=== PATIENT | male | born 1940 | race Caucasian/White ===

== ENCOUNTER 2021-08-29 08:38 | Inpatient (IN) ==
[2021-08-29 10:42] LABS: Albumin 3.3 G/DL (3.4-5.0); Bilirubin,Total 2.8 MG/DL (0.20-1.00); Calcium 8.9 MG/DL (8.5-10.1); Osmolality,Calculated 239.5 MOS/KG (273-304); Total Protein 6.3 G/DL (6.4-8.2)
[2021-08-29 11:19] LABS: Basophils % 0.1 % (0.0-0.8); Eosinophils % 0.2 % (0.00-10.9); Hematocrit 36.8 VOL% (42.0-52.0); Hemoglobin 13.7 GM/DL (14.0-18.0); Immature Granulocytes % 0.6 %; Immature Granulocytes Absolute 0.07 #; Lymphocytes # 1.3 10*3/uL (1.4-4.0); Lymphocytes % 11.7 % (21.2-54.2); Mean Corpuscular HGB Conc 37.2 GM/DL (32-36); Mean Corpuscular Volume 80.3 FL (87-102); Mean Platelet Volume 8.5 FL (9.6-12.0); Monocytes % 6.7 % (1.7-12.7); Neutrophils % 80.7 % (38.7-73.9); Platelet Count 306 T/CUMM (130-400); Red Blood Count 4.58 MC/CUMM (3.8-5.5); Red Cell Distribution Width 12.3 % (9.3-17.3); White Blood Count 10.9 T/CUMM (4-12)
[2021-08-29 12:17] LABS: Free T4 (Free Thyroxine) 1.21 NG/DL (0.76-1.46); Thyroid Stimulating Hormone 1.62 uIU/ml (0.358-3.74)
[2021-08-29] MEDS ORDERED: hydrALAZINE 20 MG/1 ML VIAL IV PRN (12:58)
[2021-08-29] MEDS ORDERED: ONDANSETRON 4 MG/2 ML VIAL IV PRN (12:58)
[2021-08-29] MEDS ORDERED: GLUCAGON 1 MG VIAL IM PRN (12:58)
[2021-08-29] MEDS ORDERED: DOCUSATE SODIUM 100 MG CAPSULE PO PRN (12:58)
[2021-08-29] MEDS ORDERED: ACETAMINOPHEN 325 MG TABLET PO PRN (12:58)
[2021-08-29] MEDS ORDERED: SIMETHICONE CHEW 125 MG TABLET PO PRN (12:58)
[2021-08-29] MEDS ORDERED: POTASSIUM CHLORIDE 20 MEQ TABLET PO PRN (13:03)
[2021-08-29] MEDS ORDERED: DEXTROSE 50% 25 GM/50 ML SYRINGE IV PRN (13:04)
[2021-08-29] MEDS: ENOXAPARIN 40 MG/0.4 ML SYRINGE SUBCUT SCH (15:50)
[2021-08-29] MEDS: SODIUM CHLORIDE 0.45% 1,000 ML IV SCH (16:00)
[2021-08-29] MEDS: PANTOPRAZOLE 40 MG TABLET PO SCH (16:03)
[2021-08-29] MEDS: POTASSIUM CHLORIDE 20 MEQ PACK PO SCH ×2 (16:03→20:39)
[2021-08-29 16:21] LABS: Calcium 8.9 MG/DL (8.5-10.1); Osmolality,Calculated 242.2 MOS/KG (273-304); Potassium 3.2 MMOL/L (3.5-5.1)
[2021-08-29 18:51] LABS: Calcium 8.7 MG/DL (8.5-10.1); Osmolality,Calculated 245.2 MOS/KG (273-304); Potassium 3.4 MMOL/L (3.5-5.1)
[2021-08-29] MEDS: CALCIUM CARBONATE CHEW 500 MG TABLET PO PRN (20:14)
[2021-08-29 21:46] LABS: Calcium 8.2 MG/DL (8.5-10.1); Osmolality,Calculated 250.8 MOS/KG (273-304)
[2021-08-30 00:58] LABS: Calcium 8.4 MG/DL (8.5-10.1); Osmolality,Calculated 245.8 MOS/KG (273-304); Potassium 3.8 MMOL/L (3.5-5.1)
[2021-08-30 01:03] LABS: Basophils % 0.3 % (0.0-0.8); Eosinophils # 0.1 10*3/uL (0.0-0.87); Eosinophils % 1.1 % (0.00-10.9); Hematocrit 32.9 VOL% (42.0-52.0); Immature Granulocytes % 0.5 %; Immature Granulocytes Absolute 0.05 #; Lymphocytes # 1.8 10*3/uL (1.4-4.0); Lymphocytes % 18.5 % (21.2-54.2); Mean Corpuscular HGB Conc 37.7 GM/DL (32-36); Mean Corpuscular Volume 80.6 FL (87-102); Mean Platelet Volume 8.5 FL (9.6-12.0); Monocytes % 7.9 % (1.7-12.7); Neutrophils % 71.7 % (38.7-73.9); Platelet Count 272 T/CUMM (130-400); Red Blood Count 4.08 MC/CUMM (3.8-5.5); Red Cell Distribution Width 12.4 % (9.3-17.3); White Blood Count 9.7 T/CUMM (4-12)
[2021-08-30 01:08] LABS: Hemoglobin 12.4 GM/DL (14.0-18.0)
[2021-08-30] MEDS: SODIUM CHLORIDE 0.45% 1,000 ML IV SCH ×2 (01:26→09:55)
[2021-08-30 06:10] LABS: Calcium 8.7 MG/DL (8.5-10.1); Osmolality,Calculated 247.6 MOS/KG (273-304); Potassium 3.5 MMOL/L (3.5-5.1)
[2021-08-30] MEDS: PANTOPRAZOLE 40 MG TABLET PO SCH (08:29)
[2021-08-30 09:43] LABS: Calcium 8.6 MG/DL (8.5-10.1); Osmolality,Calculated 254.4 MOS/KG (273-304); Potassium 3.4 MMOL/L (3.5-5.1)
[2021-08-30] MEDS ORDERED: LACTULOSE 320 GM/480 ML BOTTLE PO SCH (11:00)
[2021-08-30] MEDS: POLYETHYLENE GLYCOL POWDER 17 GM PACK PO SCH (11:06)
[2021-08-30] MEDS: amLODIPine 5 MG TABLET PO SCH (11:06)
[2021-08-30] MEDS: LACTULOSE 20 GM/30 ML UDCUP PO SCH (12:09)
[2021-08-30 12:39] LABS: Calcium 8.7 MG/DL (8.5-10.1); Osmolality,Calculated 249.5 MOS/KG (273-304); Potassium 3.8 MMOL/L (3.5-5.1)
[2021-08-30] MEDS: ENOXAPARIN 40 MG/0.4 ML SYRINGE SUBCUT SCH (13:31)
[2021-08-30] MEDS: SODIUM CHLORIDE 23.4% CONC INJ 38.5 MEQ in STERILE WATER INJ 1,000 ML IV SCH (15:31)
[2021-08-30 16:34] LABS: Calcium 8.7 MG/DL (8.5-10.1); Osmolality,Calculated 247.8 MOS/KG (273-304); Potassium 4.4 MMOL/L (3.5-5.1)
[2021-08-30 19:28] LABS: Calcium 8.6 MG/DL (8.5-10.1); Osmolality,Calculated 251.4 MOS/KG (273-304); Potassium 3.7 MMOL/L (3.5-5.1)
[2021-08-30] MEDS ORDERED: ASPIRIN 325 MG TABLET PO SCH (21:00)
[2021-08-30] MEDS ORDERED: SIMVASTATIN 20 MG TABLET PO SCH (21:00)
[2021-08-30] MEDS ORDERED: LOSARTAN 50 MG TABLET PO SCH (21:00)
[2021-08-30 23:29] LABS: Calcium 8.2 MG/DL (8.5-10.1); Osmolality,Calculated 251.4 MOS/KG (273-304); Potassium 3.6 MMOL/L (3.5-5.1)
[2021-08-31] MEDS: SODIUM CHLORIDE 23.4% CONC INJ 38.5 MEQ in STERILE WATER INJ 1,000 ML IV SCH (03:19)
[2021-08-31] MEDS: CALCIUM CARBONATE CHEW 500 MG TABLET PO PRN (03:19)
[2021-08-31 05:28] LABS: Basophils # 0.1 10*3/uL (0.0-0.2); Basophils % 0.7 % (0.0-0.8); Eosinophils # 0.2 10*3/uL (0.0-0.87); Eosinophils % 2.9 % (0.00-10.9); Hematocrit 32.9 VOL% (42.0-52.0); Hemoglobin 11.9 GM/DL (14.0-18.0); Immature Granulocytes % 0.7 %; Immature Granulocytes Absolute 0.05 #; Mean Corpuscular HGB Conc 36.2 GM/DL (32-36); Mean Corpuscular Volume 82.3 FL (87-102); Mean Platelet Volume 8.7 FL (9.6-12.0); Monocytes % 8.5 % (1.7-12.7); Neutrophils % 60.2 % (38.7-73.9); Platelet Count 264 T/CUMM (130-400); Red Cell Distribution Width 12.6 % (9.3-17.3); White Blood Count 7.3 T/CUMM (4-12)
[2021-08-31 05:46] LABS: Calcium 8.2 MG/DL (8.5-10.1); Osmolality,Calculated 257.8 MOS/KG (273-304); Potassium 3.5 MMOL/L (3.5-5.1)
[2021-08-31 07:17] LABS: Calcium 8.3 MG/DL (8.5-10.1); Osmolality,Calculated 257.8 MOS/KG (273-304); Potassium 3.6 MMOL/L (3.5-5.1)
[2021-08-31 10:52] LABS: Calcium 8.4 MG/DL (8.5-10.1); Osmolality,Calculated 258.8 MOS/KG (273-304); Potassium 3.5 MMOL/L (3.5-5.1)
[2021-08-31] MEDS: LACTULOSE 20 GM/30 ML UDCUP PO SCH (10:52)
[2021-08-31] MEDS: POLYETHYLENE GLYCOL POWDER 17 GM PACK PO SCH (10:59)
[2021-08-31] MEDS: PANTOPRAZOLE 40 MG TABLET PO SCH (10:59)
[2021-08-31] MEDS: amLODIPine 5 MG TABLET PO SCH (10:59)
[2021-08-31 18:17] VITALS: BP 129/64
== END 2021-08-31 14:20 | disposition home or self-care (01) | DRG 640 ==
LOC: N.ED 08:38 → N.EDINP 12:58 → N.CC 15:36 → N.3E 08-30 11:40
PROVIDERS: ADMIT Internal Medicine; ATTEND Internal Medicine